=== PATIENT | female | born 1945 | race Caucasian/White ===

== ENCOUNTER → 2016-07-15 | Outpatient (CLI) | payer OTHER ==
--- NOTE | 2016-07-15 17:12 | CT ---
CT Virtual Colonography at 1401 hour History: Incomplete colonoscopy. Personal history of colonic polyps (Z 86.010). Previous cholecystec porfirio. Technique: Spiral imaging was obtained through the abdomen and pelvis with thin slice images reconstr ucted in supine and prone position. Carbon dioxide was administered through our pump through a rectal tube as per usual technique. Images were reviewed on independent workstation with volume rendering f or virtual colonoscopy. Orthogonal imaging was also reviewed. Dose reduction techniques were utilized . Findings: On the virtual colonoscopy images there is good distention of the colon. There is no evide nce of polypoid mass or constricting lesion within the colon. No significant diverticulosis is seen. The colon is tortuous. CT images through the abdomen and pelvis demonstrates no significant abnormalities. The spleen, pancr eas, adrenals, and kidneys demonstrate no significant abnormality. There is a 2 mm nonobstructive alee culus mid right kidney. There are dense clips along the right margin of the liver. There is gas prese nt within intrahepatic bile ducts. Patient probably has had previous papillotomy. The aorta tapers no rmally. There is no ascites. The bladder is decompressed. No pelvic masses are seen. The uterus has a normal contour. No adnexal masses are seen. Impression: 1. Relatively normal CT virtual colonoscopy without evidence of mass. 2. No significant abnormalities on source CT images through the abdomen and pelvis. 3. Previous cholecystectomy. 4. Dense clips along the right margin of the liver. 5. Intrahepatic biliary gas presumably from previous papillotomy procedure. 6. Nonobstructive 2 mm calculus mid right kidney.
== END ==
LOC: FIMAGING 12:53
PROVIDERS: ATTEND Internal Medicine Gastroenterology
DX: Z12.11 Encounter for screening for malignant neoplasm of colon (principal); Z86.010 Personal history of colon polyps; N20.0 Calculus of kidney; Z90.3 Acquired absence of stomach [part of]

== ENCOUNTER 2017-03-31 23:26 | Emergency (ER) | payer OTHER ==
[2017-03-31 23:37] VITALS: TEMP 97.2
--- NOTE | 2017-03-31 23:43 | EDPHY ---
H & P Stated Complaint: RIGHT NECK PAIN SINCE YEST, WORSE AFTER MASSAGE YEST,CANT SLEEP HPI/ROS: HPI CHIEF COMPLAINT: Right lateral/posterior neck pain HISTORY OF PRESENT ILLNESS: This patient is a 71-year-old female she is otherwise healthy she does have significant medical history for hyperlipidemia and thyroid disease, she presents emergency room with right lateral posterior neck pain. It is worse with range of motion lateral movement of her neck either way. She feels that 1 focal area. She denies any trauma. Denies new pillows. Cannot think given injury. It has been present for 2 days. She does state that she got a massage age yesterday and the pain did get worse hours after the massage. She does not contributed to the massage. She denies any neck manipulation. She denies chest pain shortness of breath. Denies pain radiating down her arm. She denies focal weakness numbness or tingling. Denies back pain. Pain is located 1 focal area right lateral posterior neck. Not midline. Pain does not radiate anywhere. Focal tenderness of 1 area. No visible swelling on exam. No carotid bruit. Past Medical History: Thyroid disease and hyperlipidemia Past Surgical History: No recent surgery Social History: Denies daily use drugs alcohol tobacco products Family History: Noncontributory ROS REVIEW OF SYSTEMS: A comprehensive 10 point review of systems is otherwise negative aside from elements mentioned in the history of present illness. Exam Constitutional appears well nontoxic, triage nursing summary reviewed, vital signs reviewed, awake/alert. Eyes normal conjunctivae and sclera, EOMI, PERRLA. HENT head/neck: No midline cervical spine pain. No step-offs. No crepitus. No carotid bruit. Focal tenderness in 1 particular area right lateral posterior neck. It is worse with range of motion. No mass or bulge visible. moist mucus membranes, no epistaxis, neck supple/ no meningismus, no raccoon eyes. Respiratory clear to auscultation bilaterally, normal breath sounds, no respiratory distress, no wheezing. Cardiovascular rate normal, regular rhythm, no murmur, no edema, distal pulses normal. Gastrointestinal soft, non-tender, no rebound, no guarding, normal bowel sounds, no distension, no pulsatile mass. Genitourinary no CVA tenderness. Musculoskeletal no midline vertebral tenderness, full range of motion, no calf swelling, no tenderness of extremities, no meningismus, good pulses, neurovascularly intact. Skin pink, warm, & dry, no rash, skin atraumatic. Neurologic awake, alert and oriented x 3, AAOx3, moves all 4 extremities equally, motor intact, sensory intact, CN II-XII intact, normal cerebellar, normal vision, normal speech. Psychiatric normal mood/affect. Heme/Lymph/Immune no lymphadenopathy. Differential Diagnosis: Includes but is not limited to in a particular order cervical strain, torticollis, musculoskeletal pain, arthritis, nerve root compression, annular tear, DJD, doubt carotid or vertebral artery dissection Medical Decision Making: Plan for this patient IV establishment, blood draw, EKG, basic electrolytes, IV fentanyl for acute pain control, IV Valium 2.5 mg for muscle relaxation and re-evaluate. Re-evaluation: EKG interpretation by me on record in [email or web address] system. Impression time of EKG is 0042 this is sinus rhythm rate of 52. Left axis deviation present. I do not appreciate acute ischemic change. 0120AM: I did re-evaluate the patient she is resting comfortably no acute distress. Her blood work is reassuring. Negative troponin. Nonischemic EKG. Her neck pain drastically improved with pain control and muscle relaxants. She would like to go home infections requesting discharge. Will prescribe her the low-dose narcotic pain medicine. She understands follow-up with her primary care doctor. Additionally she understands to return emergency room if she develops worsening symptoms questions or concerns. Source: Patient - Personal History Current Tetanus/Diphtheria Vaccine: Unsure - Medical/Surgical History Hx Asthma: No Hx Chronic Respiratory Disease: No Hx Diabetes: No Hx Cardiac Disease: No Hx Renal Disease: No Hx Cirrhosis: No Hx Alcoholism: No Hx HIV/AIDS: No Hx Splenectomy or Spleen Trauma: No Other PMH: FELIBERTOADER D&C, SEPSIS 2010 WITH BOWEL RESECTION, THYROID, CHOLESTEROL, OSTEOPENIA - Social History Smoking Status: Former smoker Constitutional: Initial Vital Signs Temperature (C) 36.2 C 03/31/17 23:32 Heart Rate 60 03/31/17 23:32 Respiratory Rate 20 03/31/17 23:32 Blood Pressure 164/91 H 03/31/17 23:32 O2 Sat (%) 96 03/31/17 23:32 O2 Delivery Mode Nasal Cannula O2 (L/minute) 2 Allergies/Adverse Reactions: Penicillins Allergy (Verified 03/31/17 23:32) Home Medications: Medication Instructions Recorded Aspirin 81mg (*) 03/31/17 Atorvastatin Calcium 03/31/17 Synthroid 03/31/17 Hydrocodone/Acetaminophen 1 each PO Q4-6PRN PRN #10 tablet 04/01/17 [Hydrocodon-Acetaminophen 5-325] Medical Decision Making - Data Points Laboratory Results: Laboratory Results 04/01/17 00:10 04/01/17 00:10 04/01/17 04/01/17 00:10 00:10 WBC 7.56 10^3/uL 10^3/uL (3.80-9.50) RBC 4.69 10^6/uL 10^6/uL (4.18-5.33) Hgb 14.0 g/dL g/dL (12.6-16.3) Hct 41.2 % % (38.0-47.0) MCV 87.8 fL fL (81.5-99.8) MCH 29.9 pg pg (27.9-34.1) MCHC 34.0 g/dL g/dL (32.4-36.7) RDW 15.2 % % (11.5-15.2) Plt Count 287 10^3/uL 10^3/uL (150-400) MPV 9.3 fL fL (8.7-11.7) Neut % (Auto) 61.6 % % (39.3-74.2) Lymph % (Auto) 26.5 % % (15.0-45.0) Maries % (Auto) 9.1 % % (4.5-13.0) Eos % (Auto) 1.9 % % (0.6-7.6) Baso % (Auto) 0.5 % % (0.3-1.7) Nucleat RBC Rel Count 0.0 % % (0.0-0.2) Absolute Neuts (auto) 4.66 10^3/uL 10^3/uL (1.70-6.50) Absolute Lymphs (auto) 2.00 10^3/uL 10^3/uL (1.00-3.00) Absolute Monos (auto) 0.69 10^3/uL 10^3/uL (0.30-0.80) Absolute Eos (auto) 0.14 10^3/uL 10^3/uL (0.03-0.40) Absolute Basos (auto) 0.04 10^3/uL 10^3/uL (0.02-0.10) Absolute Nucleated RBC 0.00 10^3/uL 10^3/uL (0-0.01) Immature Gran % 0.4 % % (0.0-1.1) Immature Gran # 0.03 10^3/uL 10^3/uL (0.00-0.10) Sodium 140 mEq/L mEq/L (134-144) Potassium 4.4 mEq/L mEq/L (3.5-5.2) Chloride 105 mEq/L mEq/L (97-110) Carbon Dioxide 24 mEq/l mEq/l (22-31) Anion Gap 11 mEq/L mEq/L (8-16) BUN 26 mg/dL H mg/dL (7-23) Creatinine 0.9 mg/dL mg/dL (0.6-1.0) Estimated GFR > 60 Glucose 90 mg/dL mg/dL (70-100) Calcium 9.4 mg/dL mg/dL (8.5-10.4) Troponin I < 0.012 ng/mL ng/mL (0.000-0.034) Medications Given: Discontinued Medications Diazepam (Valium Injection) 2.5 mg IVP EDNOW ONE Stop: 03/31/17 23:57 Last Admin: 04/01/17 00:08 Dose: 2.5 mg Fentanyl (Sublimaze) 25 mcg IVP EDNOW ONE Stop: 03/31/17 23:57 Last Admin: 04/01/17 00:06 Dose: 25 mcg Sodium Chloride (Ns) 1,000 mls @ 0 mls/hr IV EDNOW ONE; Wide Open PRN Reason: Protocol Stop: 03/31/17 23:56 Last Admin: 04/01/17 00:05 Dose: 1,000 mls Departure - Departure Disposition: Home, Routine, Self-Care Clinical Impression: Neck pain Condition: Good Instructions: Neck Pain (ED), Acute Neck Pain (ED) Additional Instructions: 1. Return emergency room immediately if he develops worsening neck pain, headache, chest pain shortness of breath you do not feel well. Referrals: Haimes,Honorio D, MD [Primary Care Provider] - As per Instructions Prescriptions: Hydrocodone/Acetaminophen [Hydrocodon-Acetaminophen 5-325] 1 each PO Q4-6PRN PRN #10 tablet PRN Reason: Pain, Breakthrough
[2017-03-31] MEDS ORDERED: NS 1,000 ML IV ONE (23:55)
[2017-03-31] MEDS ORDERED: fentaNYL 100 MCG/2 ML INJ IVP ONE (23:56)
[2017-03-31] MEDS ORDERED: DIAZEPAM 10 MG/2 ML SYR IVP ONE (23:56)
[2017-04-01 00:36] LABS: % IMMATURE GRANULYOCYTES 0.4 % (0.0-1.1); ABSOLUTE IMMATURE GRANULOCYTES 0.03 10^3/uL (0.00-0.10); ADD DIFF? NO; ADD MORPH? NO; ADD SCAN? NO; ATYPICAL LYMPHOCYTE FLAG 10 (0-99); FRAGMENT RBC FLAG 0 (0-99); HEMATOCRIT 41.2 % (38.0-47.0); LEFT SHIFT FLG 0 (0-99); LIPEMIA HEMOLYSIS FLAG 90 (0-99); MEAN CELL HEMOGLOBIN 29.9 pg (27.9-34.1); MEAN CELL VOLUME 87.8 fL (81.5-99.8); MEAN PLATELET VOLUME 9.3 fL (8.7-11.7); PLATELET CLUMPS FLAG 10 (0-99); PLATELET COUNT 287 10^3/uL (150-400); RED BLOOD CELL COUNT 4.69 10^6/uL (4.18-5.33); RED CELL DISTRIBUTION WIDTH 15.2 % (11.5-15.2)
[2017-04-01 00:38] LABS: ANION GAP 11 mEq/L (8-16); CALCIUM 9.4 mg/dL (8.5-10.4); CARBON DIOXIDE 24 mEq/l (22-31); CHLORIDE 105 mEq/L (97-110); CREATININE 0.9 mg/dL (0.6-1.0); GLOMERULAR FILTRATION RATE > 60; GLUCOSE 90 mg/dL (70-100); POTASSIUM 4.4 mEq/L (3.5-5.2); SODIUM 140 mEq/L (134-144)
--- NOTE | 2017-04-01 00:44 | CPEKG ---
Heart Rate: 52 RR Interval: 1154 P-R Interval: 160 QRSD Interval: 96 QT Interval: 476 QTC Interval: 443 P Shushan: 60 QRS Shushan: -34 T Wave Shushan: 62 EKG Severity - OTHERWISE NORMAL ECG - EKG Impression: SINUS RHYTHM EKG Impression: LEFT AXIS DEVIATION Electronically Signed By: Sky Stafford 03-Apr-2017 11:57:24
[2017-04-01 00:50] LABS: TROPONIN I < 0.012 ng/mL (0.000-0.034)
[2017-04-01 01:59] VITALS: BP 101/72; PULSE 55; RESP 18; O2SAT 95
== END 2017-04-01 01:46 | disposition home or self-care (01) ==
DX: M54.2 Cervicalgia (principal); E86.9 Volume depletion, unspecified; Z79.82 Long term (current) use of aspirin; Z87.891 Personal history of nicotine dependence
CPT/HCPCS: 93005; 96361; 96374; 96375; 99284; J3010

== ENCOUNTER 2018-02-25 18:25 | Emergency (ER) | payer OTHER ==
--- NOTE | 2018-02-25 18:43 | EDPHY ---
H & P Stated Complaint: cut inner l wrist with broken wine glass Time Seen by Provider: 02/25/18 18:41 HPI/ROS: HPI: This is a 72-year-old female who presents with Chief Complaint: cut inner l wrist with broken wine glass Location: Left wrist Quality: Cut with broken glass Duration: Signs and Symptoms: No bleeding, no radiation, no numbness, no weakness, no tingling, no incontinence, no decreased range of motion, no swelling, no pain, no fever Timing: Acute Severity: [id number] Context: Patient is left hand dominant, presents with accidentally dropping her wine glass while in the kitchen trying to pour red wine. The glass landed on her left wrist and cut it with bleeding that started immediately. Patient applied direct pressure with cessation of bleeding. Unsure of tetanus status. Denies radiation, weakness, decreased range of motion, paresthesias. Modifying Factors: Direct pressure Comment: ROS: A comprehensive 10 system review of systems is otherwise negative aside from elements mentioned in the history of present illness. MEDICAL/SURGICAL/SOCIAL HISTORY: Medical/surgical history: Cholecystectomy, D&C, SEPSIS 2010 WITH BOWEL RESECTION, hypoTHYROID, CHOLESTEROL, OSTEOPENIA Social history: . Retired. CONSTITUTIONAL: Extremely polite and cooperative petite white female, awake and alert, no obvious distress HEENT: Atraumatic and normocephalic. NECK: supple EXTREMITIES: 2/2 pulses, strength 5/5, left wrist volar aspect shows horizontal , simple, 5 cm laceration; supination/pronation/flexion/extension intact with good light touch sensation. no deformities, no clubbing, no cyanosis or edema. NEUROLOGICAL: no focal neuro deficits. GCS 15. Light touch sensation intact. SKIN: Warm and dry, no erythema. no rash. Good capillary refill. Source: Patient Exam Limitations: No limitations - Personal History Current Tetanus Diphtheria and Acellular Pertussis (TDAP): Unsure - Medical/Surgical History Hx Asthma: No Hx Chronic Respiratory Disease: No Hx Diabetes: No Hx Cardiac Disease: No Hx Renal Disease: No Hx Cirrhosis: No Hx Alcoholism: No Hx HIV/AIDS: No Hx Splenectomy or Spleen Trauma: No Other PMH: GALLBLADER, D&C, SEPSIS 2010 WITH BOWEL RESECTION, THYROID, CHOLESTEROL, OSTEOPENIA - Social History Smoking Status: Former smoker Constitutional: Initial Vital Signs Temperature (C) 36.4 C 09/13/18 18:30 Heart Rate 77 02/25/18 18:30 Respiratory Rate 16 02/25/18 18:30 Blood Pressure 126/82 H 02/25/18 18:30 O2 Sat (%) 95 02/25/18 18:30 O2 Delivery Mode Room Air Allergies/Adverse Reactions: Penicillins Allergy (Verified 02/25/18 18:29) Home Medications: Medication Instructions Recorded Synthroid 03/31/17 Medical Decision Making Procedures: Procedure: Laceration repair. Verbal consent was obtained from the patient. The 5 cm, simple, superficial laceration on the left volar wrist was anesthetized in the usual fashion using 6 mL of 1% lidocaine with epinephrine. The wound was irrigated, draped and explored to its base with a gloved finger. There were no deep structures involved. No tendon injury was identified. The wound was repaired with #7, 5 0 Prolene in simple interrupted pattern. Good hemostasis was achieved and patient tolerated procedure well. Clean sterile dressing applied. The procedure was performed by myself. ED Course/Re-evaluation: Tetanus booster given Laceration repaired with 7 nonabsorbable suture. Clean sterile dressing applied. Verbal and written wound care instructions provided. No signs of neurovascular compromise/tenting of skin/compartment syndrome/ extremities and joints examined above and below area of concern and are neurovascularly intact. This patient was seen under the supervision of my secondary supervising physician. I evaluated care for this patient independently. Discussed this patient with Dr. Pettit. Differential Diagnosis: Differential diagnosis includes but is not limited to laceration, nerve injury, ligament injury, tendon injury. - Data Points Medications Given: Discontinued Medications Diphtheria/Tetanus/Acell Pertussis (Boostrix) 0.5 ml IM .ONCE ONE Stop: 02/25/18 19:08 Last Admin: 02/25/18 19:28 Dose: 0.5 ml Departure - Departure Disposition: Home, Routine, Self-Care Clinical Impression: Laceration of left wrist without complication Qualifiers: Encounter type: initial encounter Qualified Code(s): S61.512A - Laceration without foreign body of left wrist, initial encounter Condition: Good Instructions: Care For Your Stitches (ED), Laceration (ED) Additional Instructions: Keep the dressing dry and in place for 48 hours. After 48 hours, you may remove the dressing; wash the site daily with mild soap and water; then pat dry. Take Tylenol 650 mg every 4 hours and/or Ibuprofen 600 mg every 8 hours with food as needed for pain. Wound Care Follow-Up: Removal of sutures in [10-14 ] days. Suture removal is complimentary in uncomplicated cases. Infection or abnormal findings would require reevaluation by the MD. In that case, you may be billed. Return to the ER immediately if you experience redness, red streaks, have fevers /chills, flu like symptoms, limited range of motion, or any other symptoms that concern you. Referrals: Honorio Puri MD [Primary Care Provider] - As per Instructions Meaghan Lowery MD [Medical Doctor] - As per Instructions
[2018-02-25] MEDS ORDERED: TDAP ADULT 0.5 ML INJ (BOOSTRIX) IM ONE (19:07)
[2018-03-09 08:50] VITALS: BP 114/72
--- NOTE | 2018-03-09 09:02 | EDPHY ---
ED Progress Note Narrative: Patient presents to the ER for suture removal today. Doubt by nursing staff to evaluate the patient she was noted to have erythema in the suture site. Sutures are in place with no dehiscence no fetid odor however she has not have erythema extending proximally approximately 6 cm with no epitrochlear or axillary adenopathy. No crepitus. She is neurovascular intact distally. Sutures have been removed and I have recommended a course of Keflex. She has a listed penicillin allergy but states that she was told this was a child and does not know she truly has an allergy or not. My usual and customary wound precautions and instructions provided.
== END 2018-02-25 19:44 | disposition home or self-care (01) ==
PROC: 3E0234Z Introduction of Serum, Toxoid and Vaccine into Muscle, Percutaneous Approach (ICD-10-PCS; principal; 2018-02-25)
PROC: 0HQEXZZ Repair Left Lower Arm Skin, External Approach (ICD-10-PCS; principal; 2018-02-25)
DX: S61.512A Laceration without foreign body of left wrist, initial encounter (principal); Z23 Encounter for immunization; W25.XXXA Contact with sharp glass, initial encounter; Y92.010 Kitchen of single-family (private) house as the place of occurrence of the external cause

== ENCOUNTER → 2018-08-21 | Outpatient (CLI) | payer OTHER | LOC: FIMAGING 10:38 | PROVIDERS: ATTEND Internal Medicine | DX: M51.36 Other intervertebral disc degeneration, lumbar region (principal); Q65.89 Other specified congenital deformities of hip; M46.97 Unspecified inflammatory spondylopathy, lumbosacral region; M47.814 Spondylosis without myelopathy or radiculopathy, thoracic region ==

== ENCOUNTER → 2018-09-01 | Outpatient (CLI) | payer OTHER | LOC: FIMAGING 14:47 | PROVIDERS: ATTEND Internal Medicine | DX: M51.36 Other intervertebral disc degeneration, lumbar region (principal) ==